=== PATIENT | male | born 1945 | race Caucasian/White ===

== ENCOUNTER → 2021-04-10 10:14 | Outpatient (REF) | payer MEDICARE, SELFPAY | LOC: ANHLAB 10:14 | PROVIDERS: PCP Emergency Medicine; Visit Provider Nurse Practitioner | DX: C00.1 Malignant neoplasm of external lower lip (principal) | CPT/HCPCS: 88305 ==

== ENCOUNTER → 2021-06-18 07:16 | Outpatient (REF) | payer MEDICARE, SELFPAY | LOC: ANHLAB 07:16 | PROVIDERS: PCP Emergency Medicine; Visit Provider Nurse Practitioner | DX: C44.02 Squamous cell carcinoma of skin of lip (principal) | CPT/HCPCS: 88305; 88331 ==

== ENCOUNTER 2022-11-19 10:06 | Outpatient (NON) | payer MEDICARE, SELFPAY | END 2022-11-19 10:07 | disposition home or self-care (01) | LOC: ANHLAB 11-20 10:08 | PROVIDERS: PCP Emergency Medicine; Visit Provider Nurse Practitioner | DX: C44.519 Basal cell carcinoma of skin of other part of trunk (principal) | CPT/HCPCS: 88305 ==

== ENCOUNTER 2022-12-24 08:00 | Outpatient (NON) | payer MEDICARE, SELFPAY | END 2022-12-24 08:01 | disposition home or self-care (01) | LOC: ANHLAB 12-25 11:26 | PROVIDERS: PCP Emergency Medicine; Visit Provider Nurse Practitioner | DX: C44.519 Basal cell carcinoma of skin of other part of trunk (principal) | CPT/HCPCS: 88304 ==